=== PATIENT | female | born 1985 | race American Indian/Alaskan Native ===

== ENCOUNTER 2019-03-21 11:50 | Inpatient (IN) | payer OTHER ==
[~2019-03-21] VITALS: Ht 162.6 cm; Wt 69.9 kg
[2019-04-14] MEDS ORDERED: PRENATAL TABLE1 EAC2 PO (10:05)
== END 2019-04-16 16:01 | disposition home or self-care (01) | DRG 807 ==
LOC: OB/GYN 03-29 15:00 → LDR 04-14 05:40 → OB/GYN 04-14 05:40
PROVIDERS: ADMIT Specialist
PROC: 10E0XZZ Delivery of Products of Conception, External Approach (ICD-10-PCS; principal; 2019-04-14)
PROC: 4A1HXCZ Monitoring of Products of Conception, Cardiac Rate, External Approach (ICD-10-PCS; 2019-04-14)
DX: O80 Encounter for full-term uncomplicated delivery (principal); Z37.0 Single live birth; Z3A.38 38 weeks gestation of pregnancy; Z64.1 Problems related to multiparity